=== PATIENT | female | born 1970 | race Two or more races ===

== ENCOUNTER 2024-03-26 08:22 | Outpatient (CLI) | payer OTHER | END 2024-03-26 08:31 | disposition home or self-care (01) | LOC: SONOGRAMA 08:22 | DX: M25.552 Pain in left hip (principal); M70.62 Trochanteric bursitis, left hip; M25.512 Pain in left shoulder ==

== ENCOUNTER 2024-09-25 09:50 | Outpatient (CLI) | payer OTHER | END 2024-09-25 10:04 | disposition home or self-care (01) | LOC: RAD 09:50 | DX: M16.12 Unilateral primary osteoarthritis, left hip (principal); M51.360 Other intervertebral disc degeneration, lumbar region with discogenic back pain only; M47.896 Other spondylosis, lumbar region ==

== ENCOUNTER 2025-01-27 09:00 | Outpatient (CLI) | payer OTHER | END 2025-01-27 09:11 | disposition home or self-care (01) | LOC: MAMO-SONO 09:00 | PROVIDERS: ATTEND Obstetrics & Gynecology | DX: N93.8 Other specified abnormal uterine and vaginal bleeding (principal); Z12.31 Encounter for screening mammogram for malignant neoplasm of breast ==